=== PATIENT | male | born 1995 | race Caucasian/White ===

== ENCOUNTER 2019-11-18 11:22 | Emergency (ER) | payer OTHER ==
[~2019-11-18] VITALS: Ht 182.9 cm; Wt 87.7 kg
--- NOTE | 2019-11-18 12:00 | NUR ---
Late Entry: Pt ambulated into room, denies additional needs, changed into gown, resting on gurney, call light within reach, even and unlabored respirations, conversing in full sentences, NAD. WCTM
[2019-11-18 12:18] LABS: BASOPHILS # (AUTO) 0.02 x10^3/uL (0-0.1); BASOPHILS % (AUTO) 0 % (0-1); EOSINOPHILS # (AUTO) 0.09 x10^3/uL (0-0.4); EOSINOPHILS % (AUTO) 1 % (1-7); LYMPHOCYTES # (AUTO) 1.31 x10^3/uL (1-3.4); LYMPHOCYTES % (AUTO) 15 % (22-44); MD NO; MEAN CORPUSCULAR HEMOGLOBIN 28.5 pg (27.5-34.5); MEAN CORPUSCULAR HGB CONC 34.1 g/dL (33.2-36.2); MEAN CORPUSCULAR VOLUME 83.4 fL (81-97); MEAN PLATELET VOLUME 7.8 fL (7.4-10.4); MONOCYTES # (AUTO) 0.47 x10^3/uL (0.2-0.8); MONOCYTES % (AUTO) 6 % (2-9); NEUTROPHILS # (AUTO) 6.59 x10^3/uL (1.8-6.8); NEUTROPHILS % (AUTO) 78 % (42-75); PLATELET COUNT 262 x10^3/uL (130-400); RED BLOOD COUNT 5.45 x10^6/uL (4.38-5.82); RED CELL DISTRIBUTION WIDTH 13.6 % (9.4-14.8)
[2019-11-18 12:32] LABS: ALBUMIN 3.9 g/dL (3.4-5.0); ANION GAP 7 mmol/L (5-15); CHLORIDE 105 mmol/L (98-107); CREATININE 1.09 mg/dL (0.7-1.3)
--- NOTE | 2019-11-18 13:05 | NUR ---
Pt resting on gurney, call light within reach, even and unlabored respirations, conversing in full sentences, NAD. AMARILYSTM
[2019-11-18 13:06] VITALS: BP 105/65
[2019-11-18] MEDS ORDERED: OMEP-110 PO (13:06)
--- NOTE | 2019-11-18 13:26 | NUR ---
Patient given discharge instructions and they have confirmed that they understand the instructions. Patient ambulatory with steady gait. All questions answered appropriately and pt denies additional questions at this time. Pt informed to self isolate for 14 days.
== END 2019-11-18 13:27 | disposition home or self-care (01) ==
LOC: ED 11:55
DX: B34.9 Viral infection, unspecified (principal); R42 Dizziness and giddiness; R00.2 Palpitations
CPT/HCPCS: 36415; 71045; 80048; 82040; 85025; 93005; 99285